=== PATIENT | male | born 1980 | race Caucasian/White ===

== ENCOUNTER 2020-04-19 22:05 | Emergency (ER) | payer SELFPAY ==
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
== END 2020-04-19 23:17 | disposition home or self-care (01) ==
LOC: JP.ED 22:05
DX: T65.891A Toxic effect of other specified substances, accidental (unintentional), initial encounter (principal); T24.521A Corrosion of first degree of right knee, initial encounter; T24.522A Corrosion of first degree of left knee, initial encounter; F17.210 Nicotine dependence, cigarettes, uncomplicated
CPT/HCPCS: 99283